=== PATIENT | female | born 1995 | race Caucasian/White ===

== ENCOUNTER 2019-05-29 22:19 | Emergency (ER) | payer BC ==
[~2019-05-29] VITALS: Ht 162.6 cm; Wt 63.5 kg
[2019-05-29 23:03] VITALS: BP_SYST 114
--- NOTE | 2019-05-30 01:10 | NUR ---
Per returns clerk, pt LWBS.
== END 2019-05-30 01:10 | disposition left against medical advice (07) ==
LOC: SED 22:19
DX: S09.90XA Unspecified injury of head, initial encounter (principal); Z53.21 Procedure and treatment not carried out due to patient leaving prior to being seen by health care provider; W18.39XA Other fall on same level, initial encounter; Y93.61 Activity, american tackle football; Y92.89 Other specified places as the place of occurrence of the external cause; Y99.8 Other external cause status